=== PATIENT | male | born 1950 | race Caucasian/White ===

== ENCOUNTER → 2016-11-09 | Outpatient (REF) | payer MEDICARE ==
[~2016-11-09] MED LIST: AKWASOL OU; AMLO5TAB2 PO; ASPI1TAB PO; BRIM0.2S OU; COLA100C PO; EPIN0.052 OU; FEBU40TA PO; LAC-12LO3 TOP; LISI40TAB PO; NAPR220T8 PO; NYST100024 TOP; NYST10CR TOP; PERC5TAB6 PO; PROT1TAB2 PO; SLOW160T PO; SLOWTAB2 PO; SYST1SOL OU; TENO1TAB2 PO; TIMO0.5S3 OU; TIMO5OPD OU; TYLE650T25 PO; VITMTA PO
== END ==
LOC: M LAB REF 11:58
PROVIDERS: ATTEND Internal Medicine Medical Oncology
DX: D64.9 Anemia, unspecified (principal)

== ENCOUNTER → 2017-01-01 | Outpatient (REF) | payer MEDICARE ==
[~2017-01-01] MED LIST changes: -COLA100C PO; +COLA100C3 PO
[2017-01-01 12:22] LABS: MEAN CORPUSCULAR HEMOGLOBIN 28.3 pg (27.0-33.0); MEAN CORPUSCULAR HGB CONC 32.3 g/dl (32.0-36.5); MEAN CORPUSCULAR VOLUME 87.6 fl (80.0-96.0); RED CELL DISTRIBUTION WIDTH 13.9 % (11.5-14.5); WHITE BLOOD COUNT 7.6 K/mm3 (4.0-10.0)
[2017-01-01 12:49] LABS: ALBUMIN/GLOBULIN RATIO 1.29 (1.00-1.93); ALKALINE PHOSPHATASE 64 U/L (45-117); ALT/SGPT 19 U/L (12-78); ANION GAP 8 MEQ/L (8-16); AST/SGOT 18 U/L (15-37); BILIRUBIN,TOTAL 0.6 MG/DL (0.2-1.0); BLOOD UREA NITROGEN 24 MG/DL (7-18); CALCIUM LEVEL 9.2 MG/DL (8.8-10.2); CARBON DIOXIDE LEVEL 27 MEQ/L (21-32); CHLORIDE LEVEL 106 MEQ/L (98-107); CREATININE FOR GFR 1.25 MG/DL (0.70-1.30); GLOMERULAR FILTRATION RATE > 60.0 (>49); GLUCOSE, FASTING 110 MG/DL (80-110); SODIUM LEVEL 141 MEQ/L (136-145); TOTAL PROTEIN 7.1 GM/DL (6.4-8.2)
== END ==
LOC: M SFHCPLAZ 08:59
PROVIDERS: ATTEND Internal Medicine
DX: D50.9 Iron deficiency anemia, unspecified (principal); I10 Essential (primary) hypertension

== ENCOUNTER → 2017-07-05 | Outpatient (REF) | payer MEDICARE ==
[~2017-07-05] MED LIST changes: -COLA100C3 PO; +COLA100C5 PO; -EPIN0.052 OU; +EPIN1DRO OU; +NAPR1TAB41 PO; -NAPR220T8 PO; -NYST100024 TOP; +NYST1POW9 TOP; +PERC5TAB12 PO; -PERC5TAB6 PO
[2017-07-05 13:02] LABS: ALBUMIN 3.9 GM/DL (3.2-5.2); ALBUMIN/GLOBULIN RATIO 1.11 (1.00-1.93); ALKALINE PHOSPHATASE 71 U/L (45-117); ALT/SGPT 14 U/L (12-78); ANION GAP 5 MEQ/L (8-16); AST/SGOT 12 U/L (15-37); BILIRUBIN,TOTAL 0.7 MG/DL (0.2-1.0); BLOOD UREA NITROGEN 16 MG/DL (7-18); CARBON DIOXIDE LEVEL 32 MEQ/L (21-32); CHLORIDE LEVEL 103 MEQ/L (98-107); CHOLESTEROL LEVEL 214 MG/DL (<200); CREATININE FOR GFR 1.12 MG/DL (0.70-1.30); GLOMERULAR FILTRATION RATE > 60.0 (>49); GLUCOSE, FASTING 93 MG/DL (80-110); POTASSIUM SERUM 4.4 MEQ/L (3.5-5.1); SODIUM LEVEL 140 MEQ/L (136-145); TOTAL PROTEIN 7.4 GM/DL (6.4-8.2); TRIGLYCERIDES LEVEL 129 MG/DL (<150)
[2017-07-05 13:03] LABS: MEAN CORPUSCULAR HEMOGLOBIN 28.3 pg (27.0-33.0); MEAN CORPUSCULAR HGB CONC 31.9 g/dl (32.0-36.5); MEAN CORPUSCULAR VOLUME 88.6 fl (80.0-96.0); RED CELL DISTRIBUTION WIDTH 14.1 % (11.5-14.5); WHITE BLOOD COUNT 7.5 10^3/uL (4.0-10.0)
== END ==
LOC: M SFHCPLAZ 10:45
PROVIDERS: ATTEND Internal Medicine
DX: D50.9 Iron deficiency anemia, unspecified (principal); I10 Essential (primary) hypertension; E78.00 Pure hypercholesterolemia, unspecified

== ENCOUNTER → 2018-07-11 | Outpatient (REF) | payer MEDICARE ==
[2018-07-11 13:34] LABS: HEMATOCRIT 40.5 % (42.0-52.0); HEMOGLOBIN 13.1 g/dl (13.5-17.5); MEAN CORPUSCULAR HEMOGLOBIN 28.8 pg (27.0-33.0); MEAN CORPUSCULAR HGB CONC 32.3 g/dl (32.0-36.5); PLATELET COUNT, AUTOMATED 236 10^3/uL (150-450); RED BLOOD COUNT 4.55 10^6/uL (4.30-6.10); RED CELL DISTRIBUTION WIDTH 13.8 % (11.5-14.5)
[2018-07-11 13:50] LABS: ALBUMIN/GLOBULIN RATIO 1.05 (1.00-1.93); ALKALINE PHOSPHATASE 65 U/L (45-117); ALT/SGPT 14 U/L (12-78); ANION GAP 10 MEQ/L (8-16); AST/SGOT 15 U/L (7-37); BILIRUBIN,TOTAL 0.7 MG/DL (0.2-1.0); BLOOD UREA NITROGEN 26 MG/DL (7-18); CALCIUM LEVEL 9.7 MG/DL (8.8-10.2); CARBON DIOXIDE LEVEL 27 MEQ/L (21-32); CHLORIDE LEVEL 104 MEQ/L (98-107); CHOLESTEROL LEVEL 159 MG/DL (<200); CREATININE FOR GFR 1.62 MG/DL (0.70-1.30); GLOMERULAR FILTRATION RATE 45.2 (>49); GLUCOSE, FASTING 94 MG/DL (70-100); HDL CHOLESTEROL 50 MG/DL (>40); LDL CHOLESTEROL 91 MG/DL (<100); NON-HDL-C 109 MG/DL; POTASSIUM SERUM 4.3 MEQ/L (3.5-5.1); SODIUM LEVEL 141 MEQ/L (136-145); TOTAL PROTEIN 7.8 GM/DL (6.4-8.2); TRIGLYCERIDES LEVEL 90 MG/DL (<150); URIC ACID 9.8 MG/DL (3.5-7.2)
== END ==
LOC: M SFHCPLAZ 10:41
DX: D50.9 Iron deficiency anemia, unspecified (principal); I10 Essential (primary) hypertension; E78.00 Pure hypercholesterolemia, unspecified; M10.9 Gout, unspecified
CPT/HCPCS: 84550

== ENCOUNTER → 2018-07-15 | Outpatient (REF) | payer MEDICARE ==
[2018-07-15 15:34] LABS: FOLATE 10.7 NG/ML
== END ==
LOC: M SFHCPLAZ 11:13
DX: F09 Unspecified mental disorder due to known physiological condition (principal); I12.9 Hypertensive chronic kidney disease with stage 1 through stage 4 chronic kidney disease, or unspecified chronic kidney disease; N18.3 Chronic kidney disease, stage 3 (moderate); M15.9 Polyosteoarthritis, unspecified; E78.00 Pure hypercholesterolemia, unspecified; M10.9 Gout, unspecified; R73.01 Impaired fasting glucose; D50.9 Iron deficiency anemia, unspecified; H40.9 Unspecified glaucoma; Z23 Encounter for immunization; Z86.010 Personal history of colon polyps; Z86.69 Personal history of other diseases of the nervous system and sense organs
CPT/HCPCS: 82746

== ENCOUNTER → 2018-08-08 | Outpatient (CLI) | payer MEDICARE | LOC: M RAD 09:19 | DX: F09 Unspecified mental disorder due to known physiological condition (principal); I67.81 Acute cerebrovascular insufficiency; G31.9 Degenerative disease of nervous system, unspecified | CPT/HCPCS: 70551 ==

== ENCOUNTER → 2018-09-27 | Outpatient (REF) | payer MEDICARE ==
[~2018-09-27] MED LIST changes: -AMLO5TAB2 PO; +AMLO5TAB6 PO; +BRIM0.2S13 OU; +CHLO125TA; +CHLO25TA PO; +CLEO300C2 PO; +FERR32TA PO; +LISI-538; +LISI-538 PO
[2018-09-27 12:50] LABS: ALBUMIN 3.1 GM/DL (3.2-5.2); ALT/SGPT 26 U/L (12-78); BILIRUBIN,TOTAL 0.4 MG/DL (0.2-1.0); BLOOD UREA NITROGEN 16 MG/DL (7-18); CALCIUM LEVEL 8.6 MG/DL (8.8-10.2); CARBON DIOXIDE LEVEL 26 MEQ/L (21-32); CHLORIDE LEVEL 105 MEQ/L (98-107); CREATININE FOR GFR 1.09 MG/DL (0.70-1.30); GLOMERULAR FILTRATION RATE > 60.0 (>42); GLUCOSE, FASTING 93 MG/DL (70-100); POTASSIUM SERUM 3.7 MEQ/L (3.5-5.1); SODIUM LEVEL 141 MEQ/L (136-145); TOTAL PROTEIN 6.6 GM/DL (6.4-8.2); URIC ACID 6.9 MG/DL (3.5-7.2)
[2018-09-27 12:55] LABS: PTH INTACT 58.9 PG/ML (18.5-88.0)
== END ==
LOC: M SFHCPLAZ 10:07
PROVIDERS: ATTEND Internal Medicine
DX: I12.9 Hypertensive chronic kidney disease with stage 1 through stage 4 chronic kidney disease, or unspecified chronic kidney disease (principal); N18.3 Chronic kidney disease, stage 3 (moderate); M10.9 Gout, unspecified

== ENCOUNTER 2018-11-15 09:54 | Emergency (ER) | payer MEDICARE ==
[~2018-11-15] VITALS: Ht 165.1 cm; Wt 90.2 kg
[2018-11-15] MEDS ORDERED: LISI-538 (10:03)
--- NOTE | 2018-11-15 10:38 | REP ---
Clinical: Trauma/fall. Technique: AP, lateral, bilateral oblique views of the right hand. Findings: Age-related arthritic changes are appreciated. No obvious acute fracture or dislocation is appreciated. No subcutaneous emphysema or radiodense foreign body. Impression: Age-related degenerative changes. No acute fracture or dislocation. Electronically Signed by Jamie Rodrigues MD 11/15/2018 10:31 A
--- NOTE | 2018-11-15 10:41 | REP ---
Clinical: Trauma. Fall. Technique: AP, lateral, bilateral oblique views of the right elbow. Findings: Examination is limited by poor positioning. Age-related arthritic changes are appreciated. Findings include subtle spurring along the distal humerus and lateral condyle. No obvious acute fracture dislocation. No definite effusion. Impression: Age-related arthritic changes. No obvious acute fracture dislocation. If the patient remains symptomatic reevaluation may be warranted. Electronically Signed by Jamie Rodrigues MD 11/15/2018 10:32 A
[2018-11-15] MEDS ORDERED: NORCO, ANEXSIA 5/325MG TABLET (HYDROcodone/ACETAMINOPHEN) PO ONE (10:45)
--- NOTE | 2018-11-15 10:46 | REP ---
Right forearm: Two views. History: Injury in a fall. Findings: AP and lateral views of the right forearm demonstrate dystrophic soft-tissue calcification adjacent to the medial and lateral epicondyles. There is no evidence of fracture or subluxation. Impression: No acute bony abnormality. Electronically Signed by Sacha Reyes MD 11/15/2018 10:38 A
[2018-11-15] MEDS ORDERED: NORCOTAB PO (10:52)
[2018-11-15 11:07] VITALS: BP 158/73
== END 2018-11-15 11:19 | disposition home or self-care (01) ==
LOC: M ED 09:54
DX: S67.21XA Crushing injury of right hand, initial encounter (principal); W23.1XXA Caught, crushed, jammed, or pinched between stationary objects, initial encounter; Y92.098 Other place in other non-institutional residence as the place of occurrence of the external cause; I12.9 Hypertensive chronic kidney disease with stage 1 through stage 4 chronic kidney disease, or unspecified chronic kidney disease; R51 Headache; F03.90 Unspecified dementia, unspecified severity, without behavioral disturbance, psychotic disturbance, mood disturbance, and anxiety; N18.3 Chronic kidney disease, stage 3 (moderate); Z79.899 Other long term (current) drug therapy

== ENCOUNTER → 2019-01-10 | Outpatient (REF) | payer MEDICARE ==
[~2019-01-10] MED LIST changes: -ASPI1TAB PO; +ASPI81TA26 PO; +HYDR-3715 PO; +LISI40TA52 PO; -LISI40TAB PO; +NYST100029 TOP; -NYST10CR TOP
[2019-01-10 13:22] LABS: HEMATOCRIT 39.2 % (42.0-52.0); HEMOGLOBIN 12.4 g/dl (13.5-17.5); MEAN CORPUSCULAR HEMOGLOBIN 28.6 pg (27.0-33.0); MEAN CORPUSCULAR HGB CONC 31.6 g/dl (32.0-36.5); MEAN CORPUSCULAR VOLUME 90.5 fl (80.0-96.0); PLATELET COUNT, AUTOMATED 284 10^3/uL (150-450); RED BLOOD COUNT 4.33 10^6/uL (4.30-6.10); WHITE BLOOD COUNT 8.1 10^3/uL (4.0-10.0)
[2019-01-10 13:37] LABS: ALBUMIN 3.9 GM/DL (3.2-5.2); ALT/SGPT 14 U/L (12-78); BILIRUBIN,TOTAL 0.5 MG/DL (0.2-1.0); BLOOD UREA NITROGEN 19 MG/DL (7-18); CARBON DIOXIDE LEVEL 28 MEQ/L (21-32); CHLORIDE LEVEL 105 MEQ/L (98-107); CHOLESTEROL LEVEL 193 MG/DL (<200); CHOLESTEROL RISK RATIO 3.327 (<5); CREATININE FOR GFR 1.04 MG/DL (0.70-1.30); FERRITIN 709 NG/ML (26-388); GLOMERULAR FILTRATION RATE > 60.0 (>42); GLUCOSE, FASTING 124 MG/DL (70-100); HDL CHOLESTEROL 58 MG/DL (>40); IRON (FE) 51 UG/DL (65-175); LDL CHOLESTEROL 100 MG/DL (<100); NON-HDL-C 135 MG/DL; PERCENT SATURATION 17.2 % (19.7-50.0); POTASSIUM SERUM 4.3 MEQ/L (3.5-5.1); SODIUM LEVEL 139 MEQ/L (136-145); TOTAL IRON BINDING CAPACITY 297 UG/DL (250-450); TOTAL PROTEIN 6.9 GM/DL (6.4-8.2); TRIGLYCERIDES LEVEL 176 MG/DL (<150)
[2019-01-10 13:39] LABS: FOLATE > 24.0 NG/ML; PTH INTACT 57.8 PG/ML (18.5-88.0); VITAMIN B12 LEVEL 377 PG/ML
[2019-01-10 15:28] LABS: HEMOGLOBIN A1c 5.2 %
== END ==
LOC: M SFHCPLAZ 10:10
PROVIDERS: ATTEND Internal Medicine
DX: I10 Essential (primary) hypertension (principal); E78.00 Pure hypercholesterolemia, unspecified; R73.01 Impaired fasting glucose; D50.9 Iron deficiency anemia, unspecified; F09 Unspecified mental disorder due to known physiological condition